=== PATIENT | female | born 1955 | race African-American/Black ===

== ENCOUNTER 2018-05-07 23:37 | Emergency (ER) | payer SELFPAY ==
[~2018-05-07] VITALS: Ht 160 cm; Wt 75.7 kg
[2018-05-08] MEDS ORDERED: SODIUM CHLORIDE 0.9% 1000ML 1,000 ML IV STA (00:25)
[2018-05-08] MEDS ORDERED: ORPHENADRINE CITRATE 30 MG/ML VIAL IM ONE (00:30)
[2018-05-08] MEDS ORDERED: HYDROCODONE/APAP 7.5MG-325MG 1 EA TAB PO ONE (00:30)
--- NOTE | 2018-05-08 01:01 | Diagnostic Imaging Report ---
EXAM: CHEST 2 VIEWS, PA and lateral INDICATION: Pain in left shoulder blade COMPARISON: None FINDINGS: LINES/TUBES: None LUNGS: No consolidations or edema. PLEURA: No effusions or pneumothorax. HEART AND MEDIASTINUM: Normal size and contour. BONES AND SOFT TISSUES: No acute findings. IMPRESSION: No acute thoracic abnormality. Signed by: Dr. Sasha Taylor M.D. on 05/08/2018 12:58 AM
[2018-05-08 01:08] LABS: INR 0.85; PROTHROMBIN TIME 12.4 seconds (11.9-14.5)
[2018-05-08 01:09] LABS: PARTIAL THROMBOPLASTIN TIME 34.3 seconds (23.8-35.5)
[2018-05-08 01:10] LABS: BILIRUBIN,URINE NEGATIVE (NEGATIVE); CLARITY,URINE CLEAR (CLEAR); COLOR,URINE YELLOW (YELLOW); KETONES,URINE NEGATIVE (NEGATIVE); LEUKOCYTE ESTERASE ,URINE NEGATIVE (NEGATIVE); NITRITE,URINE NEGATIVE (NEGATIVE); PROTEIN,URINE DIPSTICK NEGATIVE (NEGATIVE); URINE UROBILINOGEN 0.2 mg/dL (0.2 - 1)
[2018-05-08 01:11] LABS: BASOPHILS # (AUTO) 0.1 (0.0-0.1); BASOPHILS % 0.8 % (0.0-1.0); EOSINOPHILS # (AUTO) 0.2 (0.0-0.4); EOSINOPHILS % 2.2 % (0.0-6.0); HEMATOCRIT 44.5 % (34.2-44.1); HEMOGLOBIN 14.9 g/dL (12.0-16.0); LYMPHOCYTES % 40.5 % (18.0-39.1); MEAN CORPUSCULAR HEMOGLOBIN 28.2 pg (28-32); MEAN CORPUSCULAR HGB CONC 33.5 g/dL (31-35); MEAN CORPUSCULAR VOLUME 84.3 fL (81-99); MONOCYTES # (AUTO) 0.5 (0.2-0.8); MONOCYTES % 6.5 % (4.4-11.3); NEUTROPHILS # (AUTO) 3.7 (2.1-6.9); NEUTROPHILS % 49.9 % (38.7-80.0); PLATELET COUNT 308 x10e3/uL (140-360); RED BLOOD COUNT 5.28 x10e6/uL (3.6-5.1); RED CELL DISTRIBUTION WIDTH 13.8 % (11.7-14.4)
[2018-05-08 01:18] LABS: ALANINE AMINOTRANSFERASE 18 IU/L (0-55); ALBUMIN 3.9 g/dL (3.5-5.0); ALBUMIN/GLOBULIN RATIO 1.1 (0.8-2.0); ALKALINE PHOSPHATASE 106 IU/L (40-150); ANION GAP 13.5 mmol/L (8-16); BLOOD UREA NITROGEN 14 mg/dL (7-26); BUN/CREATININE RATIO 12 (6-25); CALCIUM 10.1 mg/dL (8.4-10.2); CARBON DIOXIDE 30 mmol/L (22-29); CHLORIDE 105 mmol/L (98-107); CREATINE KINASE 237 IU/L (29-168); CREATININE, SERUM 1.13 mg/dL (0.57-1.11); EST GLOMERULAR FILTRATION RATE 59 ML/MIN (60-); GLUCOSE 97 mg/dL (74-118); MAGNESIUM 2.3 MG/DL (1.3-2.1); POTASSIUM 3.5 mmol/L (3.5-5.1); SODIUM 145 mmol/L (136-145)
[2018-05-08 01:23] LABS: BACTERIA,URINE RARE /HPF; EPITHELIAL CELLS,URINE FEW /LPF; RBC,URINE 0-5 /HPF (0-5); WBC,URINE (MAN) 0-5 /HPF (0-5)
[2018-05-08] MEDS ORDERED: NIFEDIPINE 10 MG CAP PO STA (01:44)
[2018-05-08 02:58] VITALS: BP 138/70
== END 2018-05-08 03:09 | disposition home or self-care (01) ==
LOC: ER 23:37
DX: S29.012A Strain of muscle and tendon of back wall of thorax, initial encounter (principal); I10 Essential (primary) hypertension; K44.9 Diaphragmatic hernia without obstruction or gangrene; Z72.0 Tobacco use; Z82.49 Family history of ischemic heart disease and other diseases of the circulatory system
CPT/HCPCS: 36415; 71046; 80053; 81001; 82550; 82553; 83735; 84484; 85025; 85610; 85730; 87086; 93005; 99283; J2360; J7030

== ENCOUNTER → 2020-07-15 | Day surgery (SDC) | payer MEDICARE ==
[~2020-07-15] MED LIST: ATORVASTATIN CA10 MG PO; CENTRUM SILVER1 EAC5 PO; EPHEDRINE SULFATE INJ 50 MG/ML VIAL ONE; LASIX40 MG PO; LIDOCAINE HCL 2% LOCAL INJ 5 ML SDV VIAL INJ ONE; MELOXICAM7.5 MG PO; METAMUCIL FIBE3.4 GM PO; MIDAZOLAM HCL 2 MG/2 ML VIAL ONE; NORVASC10 MG PO; POTASSIUM CHLO10 ME1 PO; PROPOFOL IV EMULSION 10 MG/ML 20 ML VIAL ONE; TYLENOL # 31 EA PO; VALIUM5 MG PO
[2020-07-15 08:20] VITALS: BP 112/78
== END | disposition home or self-care (01) ==
LOC: OR 05:29
PROVIDERS: ATTEND Internal Medicine Gastroenterology
DX: Z12.11 Encounter for screening for malignant neoplasm of colon (principal); D12.3 Benign neoplasm of transverse colon; D12.4 Benign neoplasm of descending colon; K57.30 Diverticulosis of large intestine without perforation or abscess without bleeding; K64.8 Other hemorrhoids; K44.9 Diaphragmatic hernia without obstruction or gangrene; Z71.3 Dietary counseling and surveillance; E66.9 Obesity, unspecified; F41.9 Anxiety disorder, unspecified; Z88.6 Allergy status to analgesic agent; Z88.8 Allergy status to other drugs, medicaments and biological substances; Z01.812 Encounter for preprocedural laboratory examination; Z20.828 Contact with and (suspected) exposure to other viral communicable diseases; Z68.34 Body mass index [BMI] 34.0-34.9, adult; Z87.891 Personal history of nicotine dependence
CPT/HCPCS: 45381; 45385; J2001; J2250; J2704; U0002; 45378

== ENCOUNTER 2021-05-02 12:05 | Observation (INO) | payer MEDICARE ==
[~2021-05-02] VITALS: Ht 160 cm; Wt 75.7 kg
[~2021-05-02 12:05] MED LIST changes: -EPHEDRINE SULFATE INJ 50 MG/ML VIAL ONE; -LIDOCAINE HCL 2% LOCAL INJ 5 ML SDV VIAL INJ ONE; -MIDAZOLAM HCL 2 MG/2 ML VIAL ONE; -PROPOFOL IV EMULSION 10 MG/ML 20 ML VIAL ONE
[2021-05-02] MEDS ORDERED: HYDRALAZINE HCL 20 MG/ML VIAL IV STA (12:21)
[2021-05-02 12:50] LABS: BASOPHILS % 0.6 % (0.0-1.0); EOSINOPHILS # (AUTO) 0.1 (0.0-0.4); EOSINOPHILS % 2.5 % (0.0-6.0); HEMATOCRIT 42.5 % (34.2-44.1); HEMOGLOBIN 13.7 g/dL (12.0-16.0); LYMPHOCYTES # (AUTO) 1.9 (1.0-3.2); MEAN CORPUSCULAR HEMOGLOBIN 26.8 pg (28-32); MEAN CORPUSCULAR HGB CONC 32.2 g/dL (31-35); MEAN CORPUSCULAR VOLUME 83.2 fL (81-99); MONOCYTES # (AUTO) 0.3 (0.2-0.8); MONOCYTES % 6.6 % (4.4-11.3); NEUTROPHILS # (AUTO) 2.3 (2.1-6.9); NEUTROPHILS % 49.1 % (38.7-80.0); PLATELET COUNT 303 x10e3/uL (140-360); RED BLOOD COUNT 5.11 x10e6/uL (3.6-5.1)
[2021-05-02 13:01] LABS: CLARITY,URINE CLEAR (CLEAR); COLOR,URINE YELLOW (YELLOW)
[2021-05-02 13:02] LABS: KETONES,URINE NEGATIVE (NEGATIVE); LEUKOCYTE ESTERASE ,URINE SMALL (NEGATIVE); NITRITE,URINE NEGATIVE (NEGATIVE); PROTEIN,URINE DIPSTICK NEGATIVE (NEGATIVE); URINE UROBILINOGEN 0.2 mg/dL (0.2 - 1)
[2021-05-02 13:03] LABS: INR 0.96
[2021-05-02 13:04] LABS: PARTIAL THROMBOPLASTIN TIME 30.8 seconds (23.8-35.5)
[2021-05-02 13:11] LABS: ALBUMIN/GLOBULIN RATIO 1.1 (0.8-2.0); ANION GAP 12.4 mmol/L (8-16); CALCIUM 9.4 mg/dL (8.4-10.2); POTASSIUM 3.4 mmol/L (3.5-5.1)
[2021-05-02 13:25] LABS: WBC,URINE (MAN) 0-5 /HPF (0-5)
[2021-05-02 13:32] LABS: CREATINE KINASE MB 4.9 ng/mL (0-5.0)
[2021-05-02 14:12] LABS: ERYTHROCYTE SEDIMENTATION RATE 23 mm/hr (0-20)
[2021-05-02] MEDS ORDERED: ONDANSETRON HCL INJ 2MG/ML 2ML 2 MG/ML VIAL IV PRN (15:00)
[2021-05-02] MEDS ORDERED: ACETAMINOPHEN 325 MG TAB PO PRN (16:45)
[2021-05-02 20:00] VITALS: BP 122/95
[2021-05-02 20:39] LABS: CREATINE KINASE MB 4.9 ng/mL (0-5.0)
[2021-05-02 20:59] VITALS: BP 122/95
[2021-05-02 22:35] VITALS: BP 122/95
[2021-05-02] MEDS ORDERED: DIAZEPAM 5 MG TAB PO PRN (23:00)
[2021-05-02] MEDS ORDERED: ACETAMINOPHEN/CODEINE 300MG - 30MG TAB PO PRN (23:00)
[2021-05-03] MEDS: MECLIZINE HCL 12.5 MG TAB PO SCH ×3 (00:18→13:08)
[2021-05-03 00:33] VITALS: BP 130/89
[2021-05-03 05:15] VITALS: BP 110/76
[2021-05-03 06:23] LABS: BASOPHILS % 0.8 % (0.0-1.0); EOSINOPHILS # (AUTO) 0.2 (0.0-0.4); EOSINOPHILS % 3.2 % (0.0-6.0); HEMATOCRIT 42.1 % (34.2-44.1); HEMOGLOBIN 13.4 g/dL (12.0-16.0); LYMPHOCYTES % 37.4 % (18.0-39.1); MEAN CORPUSCULAR HEMOGLOBIN 26.9 pg (28-32); MEAN CORPUSCULAR HGB CONC 31.8 g/dL (31-35); MEAN CORPUSCULAR VOLUME 84.5 fL (81-99); MONOCYTES # (AUTO) 0.5 (0.2-0.8); MONOCYTES % 9.2 % (4.4-11.3); NEUTROPHILS # (AUTO) 2.6 (2.1-6.9); NEUTROPHILS % 49.2 % (38.7-80.0); PLATELET COUNT 301 x10e3/uL (140-360); RED BLOOD COUNT 4.98 x10e6/uL (3.6-5.1); RED CELL DISTRIBUTION WIDTH 14.3 % (11.7-14.4)
[2021-05-03 07:04] LABS: ALBUMIN 3.8 g/dL (3.5-5.0); ALBUMIN/GLOBULIN RATIO 1.2 (0.8-2.0); ANION GAP 13.3 mmol/L (8-16); CALCIUM 9.3 mg/dL (8.4-10.2); CHOL/HDL RATIO 2.6 (3.0-3.6); CREATININE, SERUM 1.08 mg/dL (0.57-1.11); POTASSIUM 3.3 mmol/L (3.5-5.1)
[2021-05-03 07:34] LABS: CREATINE KINASE MB 2.5 ng/mL (0-5.0)
[2021-05-03 07:48] VITALS: BP 121/84
[2021-05-03 07:56] VITALS: BP 121/84
[2021-05-03] MEDS ORDERED: POTASSIUM CHLORIDE 10MEQ EA PO NR (08:30)
[2021-05-03] MEDS ORDERED: AMLODIPINE BESYLATE 10 MG TAB PO SCH (09:00)
[2021-05-03] MEDS ORDERED: MECLIZINE HCL12.5 MG PO (10:25)
[2021-05-03] MEDS ORDERED: OMEPRAZOLE40 MG PO (10:25)
[2021-05-03] MEDS ORDERED: GADOBENATE DIMEGLUMINE 1 ML IV ONE (10:48)
[2021-05-03 11:50] VITALS: BP 112/72
[2021-05-03] MEDS ORDERED: ONDANSETRON HCL 4 MG ORAL DISINTEGRATING TAB PO PRN (14:00)
== END 2021-05-03 14:37 | disposition home or self-care (01) ==
LOC: ER 12:14 → ERHOLD 14:52 → MED/SURG 18:40
PROVIDERS: ADMIT Internal Medicine; ATTEND Internal Medicine
DX: R42 Dizziness and giddiness (principal); R55 Syncope and collapse; R20.0 Anesthesia of skin; R47.81 Slurred speech; I10 Essential (primary) hypertension; E78.5 Hyperlipidemia, unspecified; I16.0 Hypertensive urgency; Z88.8 Allergy status to other drugs, medicaments and biological substances; E87.6 Hypokalemia; Z20.822 Contact with and (suspected) exposure to COVID-19
CPT/HCPCS: 36415 ×2; 70450; 70543; 70551; 70552; 71045; 80053 ×2; 80061; 81001; 82550 ×2; 82553 ×2; 83735; 83880; 84484 ×2; 85025 ×2; 85610; 85651; 85730; 87086; 93005; 93306; 93880; 99284; G0378 ×2; J0360; J8597; U0002

== ENCOUNTER 2022-05-29 17:53 | Emergency (ER) | payer MEDICARE ==
[~2022-05-29] VITALS: Ht 160 cm; Wt 87.5 kg
[~2022-05-29 17:53] MED LIST changes: +MECLIZINE HCL12.5 MG PO; +OMEPRAZOLE40 MG PO
[2022-05-29] MEDS ORDERED: HYDROCODONE/APAP 10MG-325MG TAB PO ONE (18:15)
== END 2022-05-29 20:50 | disposition home or self-care (01) ==
LOC: ER 17:59
DX: M25.532 Pain in left wrist (principal); M25.572 Pain in left ankle and joints of left foot; X50.0XXA Overexertion from strenuous movement or load, initial encounter; M10.9 Gout, unspecified; I10 Essential (primary) hypertension; E78.5 Hyperlipidemia, unspecified
CPT/HCPCS: 99282

== ENCOUNTER → 2022-09-21 | Day surgery (SDC) | payer MEDICARE ==
[2022-09-15 13:07] LABS: BASOPHILS % 0.7 % (0.0-1.0); EOSINOPHILS # (AUTO) 0.1 (0.0-0.4); EOSINOPHILS % 2.1 % (0.0-6.0); HEMATOCRIT 40.3 % (34.2-44.1); HEMOGLOBIN 13.6 g/dL (12.0-16.0); LYMPHOCYTES # (AUTO) 2.6 (1.0-3.2); LYMPHOCYTES % 45.2 % (18.0-39.1); MEAN CORPUSCULAR HEMOGLOBIN 27.6 pg (28-32); MEAN CORPUSCULAR HGB CONC 33.7 g/dL (31-35); MEAN CORPUSCULAR VOLUME 81.9 fL (81-99); MONOCYTES # (AUTO) 0.3 (0.2-0.8); MONOCYTES % 5.6 % (4.4-11.3); NEUTROPHILS # (AUTO) 2.7 (2.1-6.9); NEUTROPHILS % 46.2 % (38.7-80.0); PLATELET COUNT 300 x10e3/uL (140-360); RED BLOOD COUNT 4.92 x10e6/uL (3.6-5.1); RED CELL DISTRIBUTION WIDTH 14.1 % (11.7-14.4)
[~2022-09-21] MED LIST changes: +ALLOPURINOL100 MG PO; +FAMOTIDINE20 MG PO; +FENTANYL CITRATE/PF 100MCG/2 ML INJ ONE; +HAIR SKIN NAIL1 EACH PO; +KETAMINE HCL INJ 50 MG/ML 10 ML VIAL ONE; +LIDOCAINE HCL 2% LOCAL INJ 5 ML SDV VIAL INJ ONE; +MIDAZOLAM HCL 2 MG/2 ML VIAL ONE; +MYLANTA COAT-C355 ML PO; +NEURONTIN100 MG PO; +ONDANSETRON HCL INJ 2MG/ML 2ML 2 MG/ML VIAL ONE; +OZEMPIC0.25 MG/0. SC; +PAIN PO; +POVIDONE IODINE 0.05% 0.05 % ML PO ONE; +PROPOFOL IV EMULSION 10 MG/ML 20 ML VIAL ONE
[2022-09-21 09:06] VITALS: BP 118/68
== END | disposition home or self-care (01) ==
LOC: OR 06:21
PROVIDERS: ATTEND Internal Medicine Gastroenterology
DX: Z09 Encounter for follow-up examination after completed treatment for conditions other than malignant neoplasm (principal); D12.2 Benign neoplasm of ascending colon; K57.30 Diverticulosis of large intestine without perforation or abscess without bleeding; K64.8 Other hemorrhoids; R10.13 Epigastric pain; Z88.6 Allergy status to analgesic agent; Z88.8 Allergy status to other drugs, medicaments and biological substances; Z01.810 Encounter for preprocedural cardiovascular examination; Z01.812 Encounter for preprocedural laboratory examination; Z68.33 Body mass index [BMI] 33.0-33.9, adult; Z87.891 Personal history of nicotine dependence
CPT/HCPCS: 36415 ×2; 45385; 82948; 85025; 88305; 93005; J2001; J2250; J2405; J2704; J3010; 45378; 45384

== ENCOUNTER 2023-10-08 10:38 | Emergency (ER) | payer MEDICARE ==
[~2023-10-08] VITALS: Ht 160 cm; Wt 87.5 kg
[~2023-10-08 10:38] MED LIST changes: +CEFDINIR300 MG PO; -FENTANYL CITRATE/PF 100MCG/2 ML INJ ONE; +HYDROCODON-ACE1 EA12 PO; -KETAMINE HCL INJ 50 MG/ML 10 ML VIAL ONE; -LIDOCAINE HCL 2% LOCAL INJ 5 ML SDV VIAL INJ ONE; -MIDAZOLAM HCL 2 MG/2 ML VIAL ONE; -ONDANSETRON HCL INJ 2MG/ML 2ML 2 MG/ML VIAL ONE; +ONDANSETRON ODT4 MG SL; +PEPTO-BISMOL262 M2 PO; -POVIDONE IODINE 0.05% 0.05 % ML PO ONE; -PROPOFOL IV EMULSION 10 MG/ML 20 ML VIAL ONE; +TRIAMCINOLONE A15 G1 TOP
[2023-10-08] MEDS: PSEUDOEPHEDRINE HCL 30 MG TAB PO ONE (13:13)
[2023-10-08] MEDS ORDERED: PSEUDOEPHEDRINE30 MG PO (13:18)
[2023-10-08] MEDS ORDERED: FLONASE ALLERG9.9 ML INH (13:18)
[2023-10-08 14:00] VITALS: BP 127/84; PULSE 82; RESP 16; TEMP 98.4; O2SAT 99
== END 2023-10-08 14:04 | disposition home or self-care (01) ==
LOC: ER 11:30
DX: R05.9 Cough, unspecified (principal); J06.9 Acute upper respiratory infection, unspecified; I10 Essential (primary) hypertension; E78.5 Hyperlipidemia, unspecified; M10.9 Gout, unspecified
CPT/HCPCS: 71046; 99284

== ENCOUNTER 2024-06-25 05:37 | Emergency (ER) | payer MEDICARE ==
[~2024-06-25] VITALS: Ht 160 cm; Wt 77.1 kg
[~2024-06-25 05:37] MED LIST changes: +FLONASE ALLERG9.9 ML INH; +PSEUDOEPHEDRINE30 MG PO
[2024-06-25 06:30] VITALS: PULSE 66; RESP 18; TEMP 97.4
[2024-06-25] MEDS ORDERED: ZYRTEC10 M3 PO (06:34)
[2024-06-25] MEDS ORDERED: CLARITIN10 MG PO (06:34)
[2024-06-25] MEDS ORDERED: DOXYCYCLINE HY100 MG PO (06:35)
[2024-06-25 06:41] VITALS: BP 156/96; PULSE 87; RESP 18; TEMP 97.4; O2SAT 99
== END 2024-06-25 06:43 | disposition home or self-care (01) ==
LOC: ER 06:06
DX: L25.9 Unspecified contact dermatitis, unspecified cause (principal); I10 Essential (primary) hypertension; E78.5 Hyperlipidemia, unspecified; M10.9 Gout, unspecified
CPT/HCPCS: 99282

== ENCOUNTER 2024-07-13 10:54 | Emergency (ER) | payer MEDICARE ==
[~2024-07-13] VITALS: Ht 160 cm; Wt 77.1 kg
[~2024-07-13 10:54] MED LIST changes: +CLARITIN10 MG PO; +DOXYCYCLINE HY100 MG PO; +ZYRTEC10 M3 PO
[2024-07-13 10:55] VITALS: TEMP 97.7
[2024-07-13] MEDS: METHYLPREDNISOLONE SOD SUCC 125 MG/2ML VIAL IV STA (11:22)
[2024-07-13] MEDS: DIPHENHYDRAMINE HCL INJ 50 MG/ML VIAL IV ONE (11:22)
[2024-07-13] MEDS: SODIUM CHLORIDE 0.9% 1000ML 1,000 ML IV STA (11:28)
[2024-07-13] MEDS: FAMOTIDINE 20 MG/2 ML VIAL IV STA (11:34)
[2024-07-13 11:42] LABS: BASOPHILS % 0.7 % (0.0-1.0); EOSINOPHILS # (AUTO) 0.2 (0.0-0.4); EOSINOPHILS % 2.9 % (0.0-6.0); HEMATOCRIT 41.6 % (34.2-44.1); HEMOGLOBIN 13.2 g/dL (12.0-16.0); LYMPHOCYTES # (AUTO) 2.6 (1.0-3.2); LYMPHOCYTES % 44.8 % (18.0-39.1); MEAN CORPUSCULAR HEMOGLOBIN 28.4 pg (28-32); MEAN CORPUSCULAR HGB CONC 31.7 g/dL (31-35); MEAN CORPUSCULAR VOLUME 89.5 fL (81-99); MONOCYTES # (AUTO) 0.4 (0.2-0.8); MONOCYTES % 6.6 % (4.4-11.3); NEUTROPHILS # (AUTO) 2.6 (2.1-6.9); PLATELET COUNT 283 x10e3/uL (140-360); RED BLOOD COUNT 4.65 x10e6/uL (3.6-5.1); RED CELL DISTRIBUTION WIDTH 13.9 % (11.7-14.4); WHITE BLOOD COUNT 5.78 x10e3/uL (4.8-10.8)
[2024-07-13 11:53] LABS: INR 0.85; PARTIAL THROMBOPLASTIN TIME 30.1 seconds (23.8-35.5); PROTHROMBIN TIME 12.2 seconds (11.9-14.5)
[2024-07-13 12:02] LABS: ALBUMIN 3.7 g/dL (3.5-5.0); ALBUMIN/GLOBULIN RATIO 1.2 (0.8-2.0); ANION GAP 11.8 mmol/L (8-16); BILIRUBIN,TOTAL 0.3 mg/dL (0.2-1.2); CALCIUM 9.5 mg/dL (8.4-10.2); CREATININE, SERUM 1.11 mg/dL (0.57-1.11); POTASSIUM 3.8 mmol/L (3.5-5.1); TOTAL PROTEIN 6.9 g/dL (6.5-8.1)
[2024-07-13] MEDS ORDERED: IOPAMIDOL 370 MG/ML 100 ML INFUS..BTL INJ ONE (12:21)
[2024-07-13 13:47] VITALS: PULSE 61; RESP 18; O2SAT 96
[2024-07-13] MEDS ORDERED: PREDNISONE20 MG PO (14:01)
== END 2024-07-13 14:23 | disposition home or self-care (01) ==
LOC: ER 11:06
DX: L25.9 Unspecified contact dermatitis, unspecified cause (principal); L50.9 Urticaria, unspecified
CPT/HCPCS: 36415; 70487; 80053; 85025; 85610; 85730; 99284; J1200; J2919; J7030; Q9967